=== PATIENT | female | born 1995 | race Caucasian/White ===

== ENCOUNTER 2020-09-26 23:54 | Emergency (ER) | payer OTHER ==
[~2020-09-26] VITALS: Ht 157.5 cm; Wt 68.5 kg
== END 2020-09-27 00:10 | disposition home or self-care (01) ==
LOC: ER 23:59
DX: O26.93 Pregnancy related conditions, unspecified, third trimester (principal); O21.0 Mild hyperemesis gravidarum
CPT/HCPCS: 99282